=== PATIENT | male | born 1940 | race Caucasian/White ===

== ENCOUNTER 2017-04-26 07:32 | Day surgery (SDC) | payer BC, MEDICARE ==
[2017-04-24 12:43] LABS: BASOPHILS % (AUTO) 0.4 % (0-1); EOSINOPHILS # (AUTO) 0.2 X10'3 (0-0.9); HEMATOCRIT 50.1 % (42.0-52.0); HEMOGLOBIN 16.8 g/dl (14.0-17.9); LYMPHOCYTES # (AUTO) 1.2 X10'3 (1.1-4.8); MEAN CORPUSCULAR HEMOGLOBIN 30.5 PG (27.0-31.0); MEAN CORPUSCULAR HGB CONC 33.5 % (33.0-36.5); MEAN CORPUSCULAR VOLUME 91.2 FL (78-98); MEAN PLATELET VOLUME 7.8 FL (7.4-10.4); MONOCYTES # (AUTO) 0.8 X10'3 (0-0.9); MONOCYTES % (AUTO) 9.8 % (2-12); NEUTROPHILS # (AUTO) 5.5 X10'3 (1.8-7.7); NEUTROPHILS % (AUTO) 71.8 % (42-75); PLATELET COUNT 214 X10'3 (140-440); RED CELL DISTRIBUTION WIDTH 13.4 % (11.5-14.5); WHITE BLOOD COUNT 7.7 X10'3 (4.5-11.0)
[2017-04-24 12:57] LABS: PARTIAL THROMBOPLASTIN TIME 26 SECONDS (22-32); PROTHROMBIN TIME 10.7 SECONDS (9.0-12.0)
[2017-04-24 12:58] LABS: ALANINE AMINOTRANSFERASE 311 U/L (12-78); ALBUMIN 3.9 G/DL (3.4-5.0); ALKALINE PHOSPHATASE 92 IU/L (46-116); ANION GAP 8 (8-16); ASPARTATE AMINO TRANSFERASE 114 U/L (10-37); BILIRUBIN,TOTAL 0.9 MG/DL (0.1-1.0); BLOOD UREA NITROGEN 17 MG/DL (7-18); BUN/CREATININE RATIO 16.8 (5.4-32.0); CALCIUM 9.1 MG/DL (8.5-10.1); CHLORIDE 104 MMOL/L (99-107); CREATININE 1.01 MG/DL (0.60-1.10); GLUCOSE 228 MG/DL (70-104); POTASSIUM 3.9 MMOL/L (3.5-5.1); SODIUM 140 MMOL/L (135-145); TOTAL CARBON DIOXIDE 27.8 MMOL/L (24-32); TOTAL PROTEIN 7.7 G/DL (6.4-8.2); eGFR 72 ML/MIN
[2017-04-26] VITALS (12 sets, daily range): BP systolic 116–141; BP diastolic 71–90
[~2017-04-26] VITALS: Ht 177.8 cm; Wt 108.9 kg
[~2017-04-26 07:32] MED LIST: HYDR-3972 PO; LISI40TA4 PO; TERA5CAP4 PO
[2017-04-26] MEDS ORDERED: normal saline 1000ml 1,000 ML IV SCH (08:00)
[2017-04-26] MEDS ORDERED: LORazepam 0.5 MG tablet PO PRN (08:00)
[2017-04-26] MEDS ORDERED: diphenhydrAMINE 25mg capsule PO PRN (08:00)
[2017-04-26] MEDS ORDERED: glucagon, human recombinant 1mg kit SUBCUT PRN (08:00)
[2017-04-26] MEDS ORDERED: dextrose 50%-water 50ml dispensing syringe IV PRN ×2 (08:00)
[2017-04-26] MEDS ORDERED: nitroGLYCERIN 0.4mg SUBLingual tab SL PRN (08:00)
[2017-04-26] MEDS ORDERED: MESSAGE TO PHARMACY PO ONE (08:00)
[2017-04-26] MEDS ORDERED: dextrose ORAL solution 15 GM/59 ML bottle PO PRN ×2 (08:00)
[2017-04-26] MEDS ORDERED: insulin Lispro (HumaLOG) vial - multi-dose SQ SCH (08:00)
[2017-04-26] MEDS ORDERED: METF500T PO (08:08)
[2017-04-26] MEDS ORDERED: ASPI81TA52 PO (08:08)
[2017-04-26] MEDS ORDERED: ATOR40TA PO (08:08)
[2017-04-26] MEDS ORDERED: TIZA4CAP PO (08:09)
[2017-04-26] MEDS ORDERED: fentaNYL/PF 50MCG/1 ML 2ML syringe ONE (10:40)
[2017-04-26] MEDS ORDERED: LIDOcaine 1%/PF (10mg/ml) 5ml vial ONE ×2 (10:41→10:42)
[2017-04-26] MEDS ORDERED: iohexol 350 MG/ML 50ML vial IV ONE ×2 (10:41→11:31)
[2017-04-26] MEDS ORDERED: iohexol 350MG/ML 100ml bottle IV ONE (10:41)
[2017-04-26] MEDS ORDERED: midazolam 2 mg/2 ml injection ONE (10:41)
[2017-04-26] MEDS ORDERED: normal saline 1000ml 1,000 ML IV ONE (13:55)
[2017-04-26] MEDS ORDERED: HYDROcodone/acetaminophen 10/325mg tab PO PRN (13:55)
[2017-04-26] MEDS ORDERED: OXAZEpam 15mg capsule PO PRN (13:55)
[2017-04-26] MEDS ORDERED: HYDROcodone/acetaminophen 5mg/325mg tablet PO PRN (13:55)
[2017-04-26] MEDS ORDERED: proCHLORperazine 10 MG/2 ml inj IV PRN (13:55)
[2017-04-26] MEDS ORDERED: ondansetron/PF 4mg/2ml inj IV PRN (13:55)
[2017-04-26] MEDS ORDERED: insulin glargine (Lantus) pen - multi-dose SQ SCH (21:00)
== END 2017-04-26 18:06 | disposition home or self-care (01) ==
LOC: SSTAY O 07:32
PROVIDERS: ATTEND Internal Medicine Cardiovascular Disease
DX: I25.10 Atherosclerotic heart disease of native coronary artery without angina pectoris (principal); I10 Essential (primary) hypertension; E78.5 Hyperlipidemia, unspecified; E11.9 Type 2 diabetes mellitus without complications; Z96.641 Presence of right artificial hip joint; Z79.82 Long term (current) use of aspirin; Z79.84 Long term (current) use of oral hypoglycemic drugs; Z79.899 Other long term (current) drug therapy
CPT/HCPCS: 36415; 71046; 75605; 75710; 80053; 82948; 85025; 85610; 85730; 93005; 93458; 99152; 99153; A6257; C1769; J1644; J2001; J2250; J3010; J7030; Q0163; Q9967; 75625; A4620; J1815